=== PATIENT | female | born 1985 | race Caucasian/White ===

== ENCOUNTER 2019-05-27 10:12 | Emergency (ER) | payer OTHER, MEDICAID, SELFPAY ==
[2019-05-27] VITALS (10 sets, daily range): BP systolic 105–134; BP diastolic 64–84; PULSE 51–88; RESP 12–18; TEMP 37–37.3; O2SAT 97–100; BMI 29.9
[2019-05-27 10:54] LABS: Add Manual Diff / Slide Review NO; Basophils Absolute Auto 0 /uL (0-100); Basophils Percent Auto 0.4 % (0-2); Eosinophils Absolute Auto 200 /uL (0-450); Eosinophils Percent Auto 3.9 % (2-4); Hematocrit 42.7 % (36-46); Hemoglobin 14.6 g/dL (12.0-16.0); Lymphocytes Absolute Auto 2100 /uL (1100-4500); Lymphocytes Percent Auto 35.9 % (25-40); Mean Corpuscular HGB Conc 34.1 % (30-36); Mean Corpuscular Hemoglobin 30.7 PG (26-34); Mean Corpuscular Volume 90.1 fL (80-100); Monocytes Absolute Auto 200 /uL (0-900); Monocytes Percent Auto 4.1 % (3-14); Neutrophils Absolute Auto 3200 /uL (1500-7000); Neutrophils Percent Auto 55.7 % (50-75); Platelet Count 279 X10^3/uL (150-400); Red Blood Cell Count 4.74 X10^6/uL (4.0-5.2); Red Cell Distribution Width 13.6 % (11.6-14.8); White Blood Cell Count 5.8 X10^3/uL (4.5-11.0)
[2019-05-27 11:12] LABS: Appearance Urine UA CLEAR; Bilirubin Urine UA NEGATIVE (NEGATIVE); Color Urine UA YELLOW; Glucose Urine UA NEGATIVE (Negative); Ketones Urine UA NEGATIVE (NEGATIVE); Leukocyte Esterase Urine UA TRACE (NEGATIVE); Nitrite Urine UA NEGATIVE (Negative); Occult Blood Urine UA 3+ (Negative); Protein Urine UA TRACE (Negative); Specific Gravity Urine UA 1.025 (1.000-1.035); Urobilinogen Urine UA 0.2 E.U./dL (0.2)
[2019-05-27 11:16] LABS: Pregnancy Test Urine Negative (Negative); pH Urine UA 6.5 (4.5-8.0)
[2019-05-27 11:28] LABS: Bacteria Urine Many (>30); Culture Indicated Urine Specimen Cultured; RBC Urine >100/HPF (0-5/HPF); Squamous Epithelial Cell Urine 1-5 /HPF (0-5/HPF); WBC Urine 1-5/HPF (0-5/HPF)
--- NOTE | 2019-05-27 12:53 | PC.NURSE ---
pt reports, heavier vaginal bleeding with large clots, sxs for 5 days, with nausea and light headedness fall x2 yesterday and today. migraine headache, requesting tylenol pt reports, with partial tubal ligation. hx of pid.
[2019-05-27] MEDS: ACETAMINOPHEN 325 MG TABLET 650 MG PO (13:02)
--- NOTE | 2019-05-27 13:18 | DI.US.S_ITS ---
PROCEDURE: US PELVIC COMPLETE INDICATIONS: SEVERE PELVIC PAIN, BLEEDING TECHNIQUE: Real-time scanning was performed of the pelvic organs, with image documentation. Additional endovaginal scanning was necessary due to incomplete visualization of the adnexal and endometrial structures by transabdominal scanning. COMPARISON: None. FINDINGS: Transabdominal scanning: Limited scanning through the kidneys shows no hydronephrosis. No pathologic free abdominal or pelvic fluid. Endovaginal scanning: Uterus: The uterus is normal in size and measures 8.2 x 4.0 x 4.6 cm. The uterus is noted to be anteverted. No focal myometrial lesions are identified. Endometrium is somewhat heterogeneous and not well evaluated on this examination; however, probably measures up to approximately 9 mm in maximal combined thickness. There may be calcifications along the endometrium. Multiple nabothian cysts involving the cervix are present. Ovaries: The right ovary measures 2.6 x 2.1 x 2.1 cm. Left ovary measures 2.8 x 1.7 x 1.9 cm. Both ovaries are normal in size without a cystic or solid abnormality. Small follicles are present bilaterally. Blood flow was demonstrated to the ovaries. However, arterial Doppler waveforms were not obtained. IMPRESSION: 1. The endometrium is not adequately seen on this examination related to marked heterogeneity, which could potentially be related to an endometrial process such as adenomyosis. MRI would be helpful for better presentation with intravenous contrast, if indicated. 2. Unremarkable ovaries. Dictated by: Agustin Bernard M.D. on 05/27/2019 at 13:31 Approved by: Agustin Bernard M.D. on 05/27/2019 at 13:33
[2019-05-27] MEDS: KETOROLAC 60 MG/2 ML VIAL 30 MG IM (14:55)
[2019-05-27] MEDS: DOXYCYCLINE HYCLATE 100 MG TABLET PO (14:56)
[2019-05-27] MEDS: cefTRIAXone 500 MG VIAL 250 MG IM (15:06)
[2019-05-27 16:02] LABS: Urine N gonorrhoeae NOT DETECTED
[2019-05-27 16:04] LABS: Urine Chlamydia NOT DETECTED
--- NOTE | 2019-05-27 17:27 | ED_ITS ---
HPI - Female Genitourinary <TOMMY Parham - Last Filed: 05/27/19 17:33> General Chief complaint: Vaginal Bleeding Stated complaint: LMP 05/06-05/09, heavy bleeding clots x 5 days Time Seen by Provider: 05/27/19 13:06 Source: patient Mode of arrival: Ambulatory Limitations: no limitations History of Present Illness HPI Narrative: The patient is a 34-year-old female current everyday smoker with history of pelvic inflammatory disease who presents with a chief complaint of irregular vaginal bleeding and lower abdominal pain. She denies any fevers nausea vomiting or diarrhea. She is concerned as she had her menstrual cycle started on 05/09/2019 and then she started bleeding again 5 days ago. She states she is passing quarter-size clots. She is bleeding through a tampon every 2 hours or so. She states she occasionally gets lightheaded and dizzy. She denies any vaginal discharge. She does not believe that she has any sexually transmitted infections. She does not believe she is . She has not taken anything at home for the pain. Related Data Previous Rx's Medication Instructions Recorded doxycycline hyclate 100 mg PO BID #28 cap 05/27/19 ketorolac 10 mg PO TID PRN #14 tab 05/27/19 Allergies Allergy/AdvReac Type Severity Reaction Status Date / Time No Known Drug Allergies Allergy Verified 05/27/19 11:03 Review of Systems [facility] Last Filed: 05/27/19 17:33> Review of Systems Narrative: GENERAL: Denies chills, fatigue, malaise, fever, sweats. HEENT: Denies sinus pain, ear pain, sore throat, difficulty swallowing, dizziness. RESPIRATORY: Denies dyspnea, cough, wheezing, hemoptysis, sputum. CARDIOVASCULAR: Denies chest pain, palpitations, orthopnea, edema, GASTROINTESTINAL: See HPI : See HPI MUSCULOSKELETAL: denies weakness, joint pain, or bony pain SKIN: Denies rash, skin lesions, or other NEUROLOGIC: Denies weakness, headache, numbness, change in speech, confusion, seizures, incoordination. PSYCHIATRIC: No concerning psychosocial issues. 12 point review of systems is negative except for those stated above Patient History <TOMMY Parham - Last Filed: 01/12/20 17:33> alcohol intake frequency: holidays/special occasions only Substance Use Type: marijuana Exam <MARZENA Parham - Last Filed: 05/27/19 17:33> Narrative Exam Narrative: GENERAL: This is a well-nourished, well-developed patient, in no acute distress HEAD: Atraumatic. Normocephalic. No temporal or scalp tenderness. EYES: Pupils equal round and reactive. Extraocular motions intact. No scleral i cterus. No injection or drainage. ENT: Nose without bleeding, purulent drainage or septal hematoma. Throat without erythema, tonsillar hypertrophy or exudate. Uvula midline. Airway patent. NECK: Trachea midline. No JVD or lymphadenopathy. Supple, nontender, no meningeal signs. CARDIOVASCULAR: Regular rate and rhythm RESPIRATORY: Clear to auscultation. Breath sounds equal bilaterally. No wheezes, rales, or rhonchi. No cough. No increased respiratory effort. No accessory muscle use. GASTROINTESTINAL: Abdomen soft, , nondistended. No hepato-splenomegaly, or palpable masses. No guarding. Active bowel sounds all 4 quadrants. Diffuse pain to palpation. EXTREMITIES: No clubbing, cyanosis, or edema. No joint tenderness, effusion, or edema noted. BACK: Nontender without deformity or crepitance. No flank tenderness. NEURO: AOx3. SKIN: No rash or erythema visible skin pelvic: Slight vaginal bleeding noted, no external rashes or sores noted, positive cervical motion tenderness. Exam done with Sammi RN at bedside Initial Vital Signs Initial Vital Signs: Vital Signs Temperature 99.2 F 05/27/19 10:15 Pulse Rate 88 05/27/19 10:15 Respiratory Rate 18 05/27/19 10:15 Blood Pressure 133/80 05/27/19 10:15 Pulse Oximetry 97 05/27/19 10:15 <Carmen Tamayo MD - Last Filed: 05/27/19 18:53> Initial Vital Signs Initial Vital Signs: Vital Signs Temperature 99.2 F 05/27/19 10:15 Pulse Rate 88 05/27/19 10:15 Respiratory Rate 18 05/27/19 10:15 Blood Pressure 133/80 05/27/19 10:15 Pulse Oximetry 97 05/27/19 10:15 Course <MARZENA Parham - Last Filed: 05/27/19 17:33> Orders Ordered: ED Orders 05/27/19 10:38 CBC Auto Diff [Complete Blood Count AUTO DIFF] Stat 05/27/19 10:48 Test Urine Stat Urinalysis Sreen (Dip Only) Stat Urine Culture Stat Urine Microscopic Stat 05/27/19 13:08 EKG-12 Lead Stat 05/27/19 13:18 US pelvic complete Stat 05/27/19 14:30 Genital Culture Stat Wet Prep Tric BV Danyell Stat 05/27/19 14:32 Chlamydia Gonorrhea PCR -URINE Stat Discontinued Medications Acetaminophen (Tylenol) 650 mg PO NOW ONE Stop: 05/27/19 12:56 Last Admin: 05/27/19 13:02 Dose: 650 mg Documented by: RADHA Ceftriaxone Sodium (Rocephin) 250 mg IM NOW ONE Stop: 05/27/19 14:47 Last Admin: 05/27/19 15:06 Dose: 250 mg Documented by: RADHA Doxycycline Hyclate (Vibramycin) 100 mg PO NOW ONE Stop: 05/27/19 14:47 Last Admin: 05/27/19 14:56 Dose: 100 mg Documented by: RADHA Ketorolac Tromethamine (Toradol) 60 mg IM NOW ONE Stop: 05/27/19 14:46 Last Admin: 05/27/19 16:04 Dose: Not Given Documented by: RADHA Ketorolac Tromethamine (Toradol) 30 mg IM NOW ONE Stop: 05/27/19 14:47 Last Admin: 05/27/19 14:55 Dose: 30 mg Documented by: RADHA Vital Signs Vital signs: Vital Signs - 8 hr 05/27/19 11:40 05/27/19 12:00 05/27/19 12:30 Temperature 98.6 F Pulse Rate 77 58 L 54 L Pulse Rate [Orthostatic Lying] Respiratory Rate 12 Blood Pressure [Orthostatic Lying] Blood Pressure [Orthostatic Standing] Blood Pressure [Right Arm] 111/66 113/68 119/70 Pulse Oximetry 99 05/27/19 12:54 05/27/19 13:00 05/27/19 13:05 Temperature Pulse Rate 70 Pulse Rate [Orthostatic Lying] 67 Respiratory Rate Blood Pressure [Orthostatic Lying] 112/64 Blood Pressure [Orthostatic Standing] 121/73 Blood Pressure [Right Arm] 111/70 121/73 Pulse Oximetry 05/27/19 13:30 05/27/19 15:15 05/27/19 15:45 Temperature Pulse Rate 51 L 83 52 L Pulse Rate [Orthostatic Lying] Respiratory Rate 16 Blood Pressure [Orthostatic Lying] Blood Pressure [Orthostatic Standing] Blood Pressure [Right Arm] 105/67 134/84 118/78 Pulse Oximetry 99 100 <Carmen Tamayo MD - Last Filed: 05/27/19 18:53> Orders Ordered: ED Orders 05/27/19 10:38 CBC Auto Diff [Complete Blood Count AUTO DIFF] Stat 05/27/19 10:48 Test Urine Stat Urinalysis Sreen (Dip Only) Stat Urine Culture Stat Urine Microscopic Stat 05/27/19 13:08 EKG-12 Lead Stat 05/27/19 13:18 US pelvic complete Stat 05/27/19 14:30 Genital Culture Stat Wet Prep Tric BV Danyell Stat 05/27/19 14:32 Chlamydia Gonorrhea PCR -URINE Stat Discontinued Medications Acetaminophen (Tylenol) 650 mg PO NOW ONE Stop: 05/27/19 12:56 Last Admin: 05/27/19 13:02 Dose: 650 mg Documented by: RADHA Ceftriaxone Sodium (Rocephin) 250 mg IM NOW ONE Stop: 05/27/19 14:47 Last Admin: 05/27/19 15:06 Dose: 250 mg Documented by: RADHA Doxycycline Hyclate (Vibramycin) 100 mg PO NOW ONE Stop: 05/27/19 14:47 Last Admin: 05/27/19 14:56 Dose: 100 mg Documented by: RADHA Ketorolac Tromethamine (Toradol) 60 mg IM NOW ONE Stop: 05/27/19 14:46 Last Admin: 05/27/19 16:04 Dose: Not Given Documented by: RADHA Ketorolac Tromethamine (Toradol) 30 mg IM NOW ONE Stop: 05/27/19 14:47 Last Admin: 05/27/19 14:55 Dose: 30 mg Documented by: RADHA Vital Signs Vital signs: Vital Signs - 8 hr 05/27/19 11:40 05/27/19 12:00 05/27/19 12:30 Temperature 98.6 F Pulse Rate 77 58 L 54 L Pulse Rate [Orthostatic Lying] Respiratory Rate 12 Blood Pressure [Orthostatic Lying] Blood Pressure [Orthostatic Standing] Blood Pressure [Right Arm] 111/66 113/68 119/70 Pulse Oximetry 99 05/27/19 12:54 05/27/19 13:00 05/27/19 13:05 Temperature Pulse Rate 70 Pulse Rate [Orthostatic Lying] 67 Respiratory Rate Blood Pressure [Orthostatic Lying] 112/64 Blood Pressure [Orthostatic Standing] 121/73 Blood Pressure [Right Arm] 111/70 121/73 Pulse Oximetry 05/27/19 13:30 05/27/19 15:15 05/27/19 15:45 Temperature Pulse Rate 51 L 83 52 L Pulse Rate [Orthostatic Lying] Respiratory Rate 16 Blood Pressure [Orthostatic Lying] Blood Pressure [Orthostatic Standing] Blood Pressure [Right Arm] 105/67 134/84 118/78 Pulse Oximetry 99 100 MDM - Female Genitourinary <Alina Charles, [employer] REPRESENTATIVE- - Last Filed: 05/27/19 17:33> Lab Data Result diagrams: 05/27/19 10:38 Labs: Lab Results 05/27/19 05/27/19 05/27/19 Range/Units 10:38 10:48 10:48 WBC 5.8 (4.5-11.0) X10^3/uL RBC 4.74 (4.0-5.2) X10^6/uL Hgb 14.6 (12.0-16.0) g/dL Hct 42.7 (36-46) % MCV 90.1 (80-100) fL MCH 30.7 (26-34) PG MCHC 34.1 (30-36) % RDW 13.6 (11.6-14.8) % Plt Count 279 (150-400) X10^3/uL Neut % (Auto) 55.7 (50-75) % Lymph % (Auto) 35.9 (25-40) % Owsley % (Auto) 4.1 (3-14) % Eos % (Auto) 3.9 (2-4) % Baso % (Auto) 0.4 (0-2) % Neut # (Auto) 3200 (9584-5193) /uL Lymph # (Auto) 2100 (7200-3476) /uL Owsley # (Auto) 200 (0-900) /uL Eos # (Auto) 200 (0-450) /uL Baso # (Auto) 0 (0-100) /uL Urine Color Yellow Urine Appearance Clear Urine pH 6.5 (4.5-8.0) Ur Specific Rumsey 1.025 (1.000-1.035) Urine Protein Trace H (Negative) Urine Glucose (UA) Negative (Negative) g/dL Urine Ketones Negative (NEGATIVE) Urine Occult Blood 3+ H (Negative) Urine Nitrate Negative (Negative) Urine Bilirubin Negative (NEGATIVE) Urine Urobilinogen 0.2 (0.2) E.U./dL Ur Leukocyte Esterase Trace H (NEGATIVE) Urine RBC >100/hpf H (0-5/HPF) Urine WBC 1-5/hpf (0-5/HPF) Ur Squamous Epith Cells 1-5 /hpf (0-5/HPF) Urine Bacteria Many (>30) H (None) Ur Culture Indicated? Specimen cultured Urine Test Negative (Negative) Ur Chlamydia DNA (PCR) N gonorrhoeae DNA (PCR) 05/27/19 Range/Units 14:32 WBC (4.5-11.0) X10^3/uL RBC (4.0-5.2) X10^6/uL Hgb (12.0-16.0) g/dL Hct (36-46) % MCV (80-100) fL MCH (26-34) PG MCHC (30-36) % RDW (11.6-14.8) % Plt Count (150-400) X10^3/uL Neut % (Auto) (50-75) % Lymph % (Auto) (25-40) % Owsley % (Auto) (3-14) % Eos % (Auto) (2-4) % Baso % (Auto) (0-2) % Neut # (Auto) (2048-2550) /uL Lymph # (Auto) (3293-2253) /uL Owsley # (Auto) (0-900) /uL Eos # (Auto) (0-450) /uL Baso # (Auto) (0-100) /uL Urine Color Urine Appearance Urine pH (4.5-8.0) Ur Specific Rumsey (1.000-1.035) Urine Protein (Negative) Urine Glucose (UA) (Negative) g/dL Urine Ketones (NEGATIVE) Urine Occult Blood (Negative) Urine Nitrate (Negative) Urine Bilirubin (NEGATIVE) Urine Urobilinogen (0.2) E.U./dL Ur Leukocyte Esterase (NEGATIVE) Urine RBC (0-5/HPF) Urine WBC (0-5/HPF) Ur Squamous Epith Cells (0-5/HPF) Urine Bacteria (None) Ur Culture Indicated? Urine Test (Negative) Ur Chlamydia DNA (PCR) Not detected N gonorrhoeae DNA (PCR) Not detected Imaging Data US - GLUED WOOD TESTER: Radiologist's Impression: ECG Data Attestation: I personally reviewed and interpreted this ECG as follows: MDM Narrative Medical decision making narrative: The patient is a 34-year-old female who presents with a chief complaint of irregular vaginal bleeding. Her hemoglobin hematocrit are reassuring, she is not tachycardic or hypotensive. Ultrasound was performed showing endometrial process such as adenomyosis due to the heterogeneity of her endometrium. She does have cervical motion tenderness on exam, raising suspicion of pelvic inflammatory disease. The she was treated in the emergency department I placed her on doxycycline. Her urine is showing signs of infection, however this is a dirty catch for GC testing, and she has no signs of dysuria urgency or frequency. Thus I'll not initiate further treatment for her today. I did discuss with her the possibilities of endometrial irregularity such as adenomyosis, suggested MRI with IV contrast as an outpatient, probable endometrial biopsy as an outpatient. Offered to call on-call real estate inspector at this facility, however the patient declined and stated that she would rather follow-up with her primary care provider. I discussed that she needs to follow up as soon as possible and call them tomorrow. I discussed the possibility of medications to help sees menstrual bleeding, however her menstrual bleeding has decreased over the past few days and she is hemodynamically stable so we agreed to hold off on that. I discussed at length the importance of following up with primary care provider soon as possible. Discussed going back to the emergency department for any acute concerns. Patient has no questions or concerns upon discharge and states understanding of return precautions as well as follow-up care. <Carmen Tamayo MD - Last Filed: 05/27/19 18:53> Lab Data Labs: Lab Results 05/27/19 05/27/19 05/27/19 Range/Units 10:38 10:48 10:48 WBC 5.8 (4.5-11.0) X10^3/uL RBC 4.74 (4.0-5.2) X10^6/uL Hgb 14.6 (12.0-16.0) g/dL Hct 42.7 (36-46) % MCV 90.1 (80-100) fL MCH 30.7 (26-34) PG MCHC 34.1 (30-36) % RDW 13.6 (11.6-14.8) % Plt Count 279 (150-400) X10^3/uL Neut % (Auto) 55.7 (50-75) % Lymph % (Auto) 35.9 (25-40) % Owsley % (Auto) 4.1 (3-14) % Eos % (Auto) 3.9 (2-4) % Baso % (Auto) 0.4 (0-2) % Neut # (Auto) 3200 (8175-7185) /uL Lymph # (Auto) 2100 (6673-9859) /uL Owsley # (Auto) 200 (0-900) /uL Eos # (Auto) 200 (0-450) /uL Baso # (Auto) 0 (0-100) /uL Urine Color Yellow Urine Appearance Clear Urine pH 6.5 (4.5-8.0) Ur Specific Rumsey 1.025 (1.000-1.035) Urine Protein Trace H (Negative) Urine Glucose (UA) Negative (Negative) g/dL Urine Ketones Negative (NEGATIVE) Urine Occult Blood 3+ H (Negative) Urine Nitrate Negative (Negative) Urine Bilirubin Negative (NEGATIVE) Urine Urobilinogen 0.2 (0.2) E.U./dL Ur Leukocyte Esterase Trace H (NEGATIVE) Urine RBC >100/hpf H (0-5/HPF) Urine WBC 1-5/hpf (0-5/HPF) Ur Squamous Epith Cells 1-5 /hpf (0-5/HPF) Urine Bacteria Many (>30) H (None) Ur Culture Indicated? Specimen cultured Urine Test Negative (Negative) Ur Chlamydia DNA (PCR) N gonorrhoeae DNA (PCR) 05/27/19 Range/Units 14:32 WBC (4.5-11.0) X10^3/uL RBC (4.0-5.2) X10^6/uL Hgb (12.0-16.0) g/dL Hct (36-46) % MCV (80-100) fL MCH (26-34) PG MCHC (30-36) % RDW (11.6-14.8) % Plt Count (150-400) X10^3/uL Neut % (Auto) (50-75) % Lymph % (Auto) (25-40) % Owsley % (Auto) (3-14) % Eos % (Auto) (2-4) % Baso % (Auto) (0-2) % Neut # (Auto) (1555-2908) /uL Lymph # (Auto) (0749-7372) /uL Owsley # (Auto) (0-900) /uL Eos # (Auto) (0-450) /uL Baso # (Auto) (0-100) /uL Urine Color Urine Appearance Urine pH (4.5-8.0) Ur Specific Rumsey (1.000-1.035) Urine Protein (Negative) Urine Glucose (UA) (Negative) g/dL Urine Ketones (NEGATIVE) Urine Occult Blood (Negative) Urine Nitrate (Negative) Urine Bilirubin (NEGATIVE) Urine Urobilinogen (0.2) E.U./dL Ur Leukocyte Esterase (NEGATIVE) Urine RBC (0-5/HPF) Urine WBC (0-5/HPF) Ur Squamous Epith Cells (0-5/HPF) Urine Bacteria (None) Ur Culture Indicated? Urine Test (Negative) Ur Chlamydia DNA (PCR) Not detected N gonorrhoeae DNA (PCR) Not detected Discharge Plan Departure Patient Disposition: Home Clinical Impression: Dysfunctional uterine bleeding Discharge Date/Time: 05/27/19 16:48 Instructions: DI for Pelvic Inflammatory Disease, DI for Vaginal Bleeding, DI for Abnormal Uterine Bleeding Activity Restrictions/Additional Instructions: I sent 2 prescriptions to [facility] in [place]. The 1st is an antibiotic to help treat pelvic inflammatory disease. The 2nd is ketorolac. As I discussed it is imperative that you follow-up with primary care provider. Please call tomorrow. You will likely need further imaging and or evaluation given the irregular uterine lining found on her ultrasound. I have given you a prescription of Toradol. This is an NSAID. Do not combine it with other NSAIDs such as Aleve or ibuprofen. I suggest taking it with some food, as it can irritate your stomach. Please come back to the emergency department for any acute concerns. Prescriptions: New doxycycline hyclate 100 mg capsule 100 mg PO BID Qty: 28 RF: 0 ketorolac 10 mg tablet 10 mg PO TID PRN (Reason: pain) Qty: 14 RF: 0 Referrals: Leah Perez MD [Physician] -
== END 2019-05-27 16:48 | disposition home or self-care (01) ==
PROVIDERS: Emergency Medicine; Emergency Provider Nurse Practitioner Family
DX: N93.8 Other specified abnormal uterine and vaginal bleeding (principal); R10.30 Lower abdominal pain, unspecified
CPT/HCPCS: 36415; 76830; 76856; 81003; 81015; 81025; 85025; 87070; 87077; 87086; 87186; 87205; 87210; 87491; 87591; 93005; 96372; 99284; 99285; J0696; J1885